=== PATIENT | male | born 1975 ===

== ENCOUNTER 2021-10-11 10:40 | Emergency (ER) | payer BC ==
[2021-10-11 10:46] VITALS: BP 150/94; PULSE 91
== END 2021-10-11 11:57 | disposition home or self-care (01) ==
LOC: LB.ED 10:40
DX: R25.1 Tremor, unspecified (principal)
CPT/HCPCS: 36415; 80048; 80307; 84484; 85025; 93005; 99283; 99284-25; A0425; A0429